=== PATIENT | male | born 1990 | race Caucasian/White ===

== ENCOUNTER 2021-09-24 22:27 | Emergency (ER) | payer BC, OTHER | END 2021-09-24 23:24 | disposition home or self-care (01) | LOC: CSHERS 22:27 | DX: S16.1XXA Strain of muscle, fascia and tendon at neck level, initial encounter (principal); V49.9XXA Car occupant (driver) (passenger) injured in unspecified traffic accident, initial encounter | CPT/HCPCS: 70450; 72125 ==

== ENCOUNTER 2021-09-28 11:58 | Emergency (ER) | payer BC, OTHER | END 2021-09-28 13:35 | disposition home or self-care (01) | LOC: CSHERS 11:58 | DX: S13.4XXA Sprain of ligaments of cervical spine, initial encounter (principal); V49.20XA Unspecified car occupant injured in collision with unspecified motor vehicles in nontraffic accident, initial encounter | CPT/HCPCS: 99283 ==

== ENCOUNTER 2022-04-07 15:50 | Emergency (ER) | payer BC, SELFPAY | END 2022-04-07 17:35 | disposition home or self-care (01) | LOC: CSHERS 15:50 | DX: G56.21 Lesion of ulnar nerve, right upper limb (principal) | CPT/HCPCS: 99283 ==

== ENCOUNTER 2022-09-07 12:39 | Emergency (ER) | payer SELFPAY ==
[2022-09-07] MEDS ORDERED: Acetaminophen 500 MG TAB ONE (13:05)
== END 2022-09-07 13:32 | disposition home or self-care (01) ==
LOC: CSHERS 12:39
DX: M25.561 Pain in right knee (principal)

== ENCOUNTER 2025-05-16 18:47 | Emergency (ER) | payer OTHER, SELFPAY | END 2025-05-16 20:36 | disposition home or self-care (01) | LOC: CSHERS 18:47 | DX: M79.672 Pain in left foot (principal); W22.8XXA Striking against or struck by other objects, initial encounter | CPT/HCPCS: 99283 ==